=== PATIENT | male | born 1965 | race Caucasian/White ===

== ENCOUNTER 2016-09-27 14:34 | Emergency (ER) | payer SELFPAY ==
[~2016-09-27] VITALS: Ht 190.5 cm; Wt 97.5 kg
[2016-09-27 14:47] VITALS: BP 132/81
== END 2016-09-27 15:35 | disposition home or self-care (01) ==
LOC: ED 14:34
DX: S52.501A Unspecified fracture of the lower end of right radius, initial encounter for closed fracture (principal); W17.89XA Other fall from one level to another, initial encounter; Y93.53 Activity, golf; Y99.8 Other external cause status; Y92.89 Other specified places as the place of occurrence of the external cause

== ENCOUNTER → 2016-10-07 | Outpatient (CLI) | payer OTHER | END | disposition home or self-care (01) | LOC: RD 15:34 | DX: S52.501D Unspecified fracture of the lower end of right radius, subsequent encounter for closed fracture with routine healing (principal) ==

== ENCOUNTER → 2018-07-03 | Outpatient (CLI) | payer OTHER | END | disposition home or self-care (01) | LOC: RD 11:48 | DX: M25.572 Pain in left ankle and joints of left foot (principal); S82.432A Displaced oblique fracture of shaft of left fibula, initial encounter for closed fracture; S82.892A Other fracture of left lower leg, initial encounter for closed fracture; X58.XXXA Exposure to other specified factors, initial encounter; Y92.9 Unspecified place or not applicable ==

== ENCOUNTER → 2018-07-07 | Outpatient (CLI) | payer OTHER | END | disposition home or self-care (01) | LOC: RD 07:09 | DX: S93.05XD Dislocation of left ankle joint, subsequent encounter (principal); X58.XXXD Exposure to other specified factors, subsequent encounter ==

== ENCOUNTER 2018-07-13 08:58 | Day surgery (SDC) | payer OTHER ==
[~2018-07-13] VITALS: Ht 190.5 cm; Wt 99.8 kg
[2018-07-13 09:38] VITALS: BP 125/74
[2018-07-13 10:02] LABS: CALCIUM 8.8 mg/dL (8.5-10.1); CARBON DIOXIDE 26.3 mmol/L (21-32); CHLORIDE SERUM 105 mmol/L (98-107); CREATININE SERUM 0.9 mg/dL (0.7-1.3); GFR1 > 60 mL/min; GLUCOSE SERUM 101 mg/dL (74-106); POTASSIUM SERUM 4.2 mmol/L (3.5-5.1); SODIUM SERUM 139 mmol/L (136-145)
[2018-07-13 10:51] LABS: BASOPHIL % 0.4 % (0-2); PLATELET COUNT 280 x10^3mcL (130-400); RED CELL DISTRIBUTION WIDTH 14.3 % (11.5-14.5)
[2018-07-13 15:23] VITALS: BP 125/78
== END 2018-07-13 15:20 | disposition home or self-care (01) ==
LOC: DS 08:58 → OR 11:30 → DS 15:20
PROVIDERS: Neuromusculoskeletal Medicine, Sports Medicine
PROC: 0QSH04Z Reposition Left Tibia with Internal Fixation Device, Open Approach (ICD-10-PCS; 2018-07-13)
PROC: 0QSK04Z Reposition Left Fibula with Internal Fixation Device, Open Approach (ICD-10-PCS; principal; 2018-07-13 11:30)
DX: S82.842A Displaced bimalleolar fracture of left lower leg, initial encounter for closed fracture (principal); W00.0XXA Fall on same level due to ice and snow, initial encounter; Y92.9 Unspecified place or not applicable
CPT/HCPCS: 76001; C1713; J0690; J1170; J2405; J2704; J3010; J3490; J7120; Q0092